=== PATIENT | female | born 1945 | race Caucasian/White ===

== ENCOUNTER 2017-10-28 07:44 | Emergency (ER) | payer OTHER ==
[~2017-10-28] VITALS: Ht 157.5 cm; Wt 95.3 kg
[2017-10-28 07:45] VITALS: BP_SYST 148
[2017-10-28] MEDS ORDERED: KETOROLAC TROMETHAMINE 60 MG/2 ML VIAL IM ONE (08:15)
[2017-10-28] MEDS ORDERED: methylPREDNISolone SOD SUCC/PF 62.5 MG/ML VIAL IM ONE (08:15)
[2017-10-28 09:19] VITALS: BP_SYST 134
== END 2017-10-28 09:21 | disposition home or self-care (01) ==
LOC: SED 07:44
DX: G89.29 Other chronic pain (principal); M54.5 Low back pain; E11.9 Type 2 diabetes mellitus without complications; Z88.0 Allergy status to penicillin; Z88.2 Allergy status to sulfonamides
CPT/HCPCS: 96372; 99284; J1885; J2930

== ENCOUNTER 2019-06-14 16:22 | Emergency (ER) | payer BC, OTHER ==
[~2019-06-14] VITALS: Ht 160 cm; Wt 99.8 kg
[2019-06-14 16:32] VITALS: BP_SYST 157
[2019-06-14] MEDS ORDERED: KETOROLAC TROMETHAMINE 60 MG/2 ML VIAL IM ONE (16:45)
[2019-06-14 17:46] LABS: BILIRUBIN,URINE NEGATIVE (NEGATIVE); BLOOD, URINE NEGATIVE (NEGATIVE); CLARITY/URINE HAZY (CLEAR); COLOR,URINE YELLOW (YELLOW); GLUCOSE,URINE NEGATIVE (NEGATIVE); KETONES,URINE NEGATIVE (NEGATIVE); LEUKOCYTE ESTERASE ,URINE 1+ (NEGATIVE); NITRITE, URINE POSITIVE (NEGATIVE); PH,URINE 6.5 (5.0-8.0); PROTEIN URINE TRACE (NEGATIVE); UROBILINOGEN,URINE 0.2 (0.2-1.0)
[2019-06-14 17:59] LABS: BACTERIA,URINE MANY /HPF (None Seen); MUCUS,URINE None Seen /LPF (None Seen); RBC,URINE 0-3 /HPF (0-3)
[2019-06-14] MEDS ORDERED: cefTRIAXone 1 GM IVPB PREMIX 50 ML IV ONE (18:15)
[2019-06-14] MEDS ORDERED: NACL 0.9% 1,000 ML IV ONE (18:15)
[2019-06-14 18:42] VITALS: BP_SYST 157
== END 2019-06-14 18:42 | disposition home or self-care (01) ==
LOC: SED 16:22
DX: N10 Acute pyelonephritis (principal); I10 Essential (primary) hypertension; E11.9 Type 2 diabetes mellitus without complications; Z88.0 Allergy status to penicillin; Z88.2 Allergy status to sulfonamides
CPT/HCPCS: 36415; 81000; 87040; 87086; 87186; 96365; 96372; 99283; J0696; J1885; J7030